=== PATIENT | male | born 1995 | race Hispanic/Latino ===

== ENCOUNTER 2016-10-22 19:43 | Emergency (ER) | payer BC ==
[~2016-10-22] VITALS: Ht 180.3 cm; Wt 102.8 kg
[2016-10-22 20:19] LABS: HEMATOCRIT 44.9 % (38.0-50.0); MCH 26.8 PG (29.0-34.0); MCHC 33.4 G/DL (30.0-36.0); MCV 80.3 FL (86-99); MEAN PLAT.VOLUME 8.9 uM^3 (9.0-12.4); PLATELET COUNT 369 K/uL (156-360); RBC DIS.WIDTH-CV 14.2 % (11.8-14.6); RBC DIS.WIDTH-SD 41.4 % (39-53); RED BLOOD COUNT 5.59 M/uL (4.00-5.50); WHITE BLOOD COUNT 14.4 K/uL (4.1-10.2)
[2016-10-22 20:27] LABS: CHLORIDE 107 mEq/L (99-109); POTASSIUM 3.8 mEq/L (3.7-5.4); SODIUM 141 mEq/L (136-147)
[2016-10-22 20:28] LABS: GLUCOSE 112 mg/dL (70-99)
[2016-10-22 20:30] LABS: ANION GAP 11 MEQ/L (2-14)
[2016-10-22 20:32] LABS: GFR ESTIMATE (CALCULATED) > 59 mL/min/
[2016-10-22 20:33] LABS: UREA NITROGEN (BUN) 11 mg/dL (9-23)
[2016-10-22] MEDS ORDERED: PROVENTIL HFA6.7 GM IH (22:37)
[2016-10-22] MEDS ORDERED: PREDNISONE20 MG PO (22:37)
[2016-10-22] MEDS ORDERED: PROVENTIL,2.5 MG/0.5 IH (22:38)
[2016-10-22] MEDS ORDERED: ZITHROMAX Z-PA250 MG PO (22:45)
[2016-10-22] MEDS ORDERED: DUONEB 2.5-0.5 M3 ML AEROSOL (22:45)
[2016-10-22 22:59] VITALS: BP 114/84
== END 2016-10-22 23:00 | disposition home or self-care (01) ==
LOC: RME 19:43 → EME 19:43 → RME 23:00
DX: J45.909 Unspecified asthma, uncomplicated (principal); J02.9 Acute pharyngitis, unspecified; J34.89 Other specified disorders of nose and nasal sinuses; Z79.52 Long term (current) use of systemic steroids
CPT/HCPCS: 71020; 80048; 85027; 94640; 99281; 99283